=== PATIENT | male | born 1950 | race Caucasian/White ===

== ENCOUNTER 2021-03-27 10:18 | Emergency (ER) | payer OTHER, SELFPAY ==
--- NOTE | 2021-03-27 10:21 | XR_ITS ---
WS: [id number] Left hand, 3 views, 03/27/2021 Clinical Data: left hand injury Comparison: None. Findings: No fractures or dislocations are seen. The soft tissues are unremarkable. The joint spaces are normal There is minimal cystic change of the distal left first metacarpal and radial base of the left second finger proximal phalanx. XR/XR hand LT min 3V* [id number] Impression: Negative for fracture or dislocation.
--- NOTE | 2021-03-27 10:22 | W.ED.EXTPRO ---
HPI - Extremity Problem General: Chief complaint: Wound/Laceration Stated complaint: L HAND INJURY Time Seen by Provider: 03/27/21 10:21 History of Present Illness: HPI Narrative: 70-year-old male presents emergency room with complaint of left hand injury. Patient cut the second MP joint dorsally with a external grinder tool yesterday approximately 24 hours ago. He has a small amount of drainage from it feels like there is some swelling as well per his report. Has not been purulent he was seen earlier today in the [place] clinic and his tetanus was updated and he was directed here because of the laceration. Associated symptoms: Deny chest pain or fever(s) Review of Systems Const: Denies: fever(s), chills, body aches, change in appetite, fatigue or malaise ENMT: Denies: throat pain, ear or mastoid pain, nasal discharge or nasal congestion Card: Denies: chest pain, edema, dyspnea on exertion or orthopnea Resp: Denies: dyspnea, productive cough or non-productive cough GI: Denies: abdominal pain, nausea, vomiting, hematemesis, coffee ground emesis, diarrhea, constipation, bloating, hematochezia or melena PFSH ED PFSH: Medical History Osteoarthritis Social History Smoking and tobacco status: current some day smoker Physical Exam Const: COMMON NORMALS: no acute distress GENERAL APPEARANCE: cooperative and comfortable ORIENTATION/CONSCIOUSNESS: Yes awake, Yes oriented to person, Yes oriented to place and Yes oriented to time HENMT: COMMON NORMALS: normocephalic, atraumatic and hearing grossly normal bilaterally HEAD & SCALP: normocephalic and atraumatic Neck/C-Spine: COMMON NORMALS: no JVD Resp: COMMON NORMALS: normal respiratory effort, No retractions, No use of accessory muscles and clear to auscultation bilaterally AUSCULTATION: clear to auscultation bilaterally Cardio: COMMON NORMALS: no JVD, regular rate, regular rhythm and No murmurs present (Cardio) RATE: regular rate RHYTHM: regular rhythm Extremity: OTHER: 3 inch laceration on the dorsal aspect of the second MP joint left hand small amount of serosanguineous drainage no localized erythema small amount of acute localized tissue swelling no induration. Neuro: SENSORIUM/ORIENTATION: Yes oriented to person, Yes oriented to place and Yes oriented to time Procedures Laceration Laceration 1: Site: upper extremity and hand Side (If applicable): left Size (cm): 4 Description: linear Depth: simple, single layer Local Anesthetic: lidocaine 1% Amount of anesthesia used (mL): 5 Pre-repair: wound explored, irrigated extensively, deep structures intact and extensive debridement Skin layer closed with: nylon Size (cm): 4-0 Number of sutures: 2 Technique: simple, interrupted Course Vital Signs: Vital signs: Vital Signs Temperature 99.0 F 03/27/21 10:51 Pulse Rate 60 03/27/21 10:51 Respiratory Rate 13 03/27/21 10:51 Blood Pressure 145/73 03/27/21 10:51 Pulse Oximetry 96 03/27/21 10:51 MDM - Extremity (Nontraumatic) MDM Narrative: Medical decision making narrative: Wound care instructions given can see some of the bone at the depth of the laceration but there is not appear to be any involvement in the cut itself there is no bony destruction there is none noted on x-ray. We will put him on Augmentin and use topical antibiotic ointment on the wound. Wound care instructions given any sign infection return immediately wound to be rechecked in 4 to 5 days sutures to be removed in 10 to 14 days. Discharge Plan Discharge Patient Disposition: Home Clinical Impression: Laceration Condition: Stable Prescriptions: New Augmentin 875-125 mg tablet 1 tab PO BID Qty: 14 RF: 0 mupirocin 2 % ointment 1 applic topical BID Qty: 15 RF: 0 Discharge Orders: Discharge ED (Routine); Ordered 03/27/21 Ordered By: Sammy Tatum Referrals: [facility] [Primary Care Provider] - Discharge Diet: Usual diet Discharge Activity: Increase activity as tolerated Patient Instructions: Opioid Safety Activity Restrictions/Additional Instructions: Follow-up for wound check in the next 4 to 5 days. Return if there is any sign infection redness or drainage. Sutures to be removed in 10 to 14 days. Ply topical antibiotic twice daily keep wound covered during the day well engaged in any activities. Can allow to be open to the air when resting. Coding Level of Care Code ED [employer] for Chg Fwd Exam Detailed
[2021-03-27 10:51] VITALS: BP 145/73; PULSE 60; RESP 13; TEMP 37.2; O2SAT 96; BMI 25.5
[2021-03-27] MEDS: lidocaine 1% INJ 20 mL INJECTION (11:36)
[2021-03-27] MEDS: bacitracin ointment Pkt 1 EACH TOPICAL (12:20)
== END 2021-03-27 12:30 | disposition home or self-care (01) ==
PROVIDERS: Emergency Provider Family Medicine
DX: S61.412A Laceration without foreign body of left hand, initial encounter (principal); F17.210 Nicotine dependence, cigarettes, uncomplicated; W31.89XA Contact with other specified machinery, initial encounter
CPT/HCPCS: 12002; 73130; 99283